=== PATIENT | female | born 1955 | race Caucasian/White ===

== ENCOUNTER → 2021-01-27 | Outpatient (CLI) | payer MEDICARE, OTHER ==
[~2021-01-27] MED LIST: ABILIFY 2 MG TAB2 MG PO; BUTALB-CAFF-AC1 EACH PO; CLONIDINE1 EACH TD; CYCLOBENZAPRINE10 MG PO; ELIQUIS 2.5 MG2.5 MG PO; ESCITALOPRAM OX20 MG PO; FLUZONE QU60 MCG/018 IM; HYDROCODON-ACE1 EAC2 PO; LEXAPRO20 MG PO; LISINOPRIL-HCT1 EAC2 PO; LORTAB 5-325 M1 EACH PO; NORCO 7.5-3251 EACH PO; NORVASC 5 MG TAB5 MG PO; NORVASC10 MG PO; PERCOCET 10-321 EACH PO; PRAVASTATIN SOD40 MG PO; PROTONIX40 MG PO; RESTORIL15 MG PO; ROPINIROLE HCL0.5 MG PO; ST. JOSEPH ASPI81 M1 PO; SYMBICORT 80-10.2 GM INH; SYNTHROID125 MCG PO; TIZANIDINE HCL4 MG PO; TOPROL XL50 MG PO; VENTOLIN HFA 66.7 GM INH; ZANAFLEX4 MG PO; ZOFRAN ODT 4 MG4 MG PO
[2021-01-27 13:14] LABS: HEMOGLOBIN 12.6 gm/dl (12.3-15.3); RED BLOOD COUNT 4.42 M/UL (4.00-5.10); WHITE BLOOD COUNT 7.8 K/UL (4.5-11.0)
[2021-01-27 13:33] LABS: BUN/CREATININE RATIO 15 (0-10)
== END ==
LOC: OPSV2 11:30
PROVIDERS: Anesthesiology
DX: Z01.818 Encounter for other preprocedural examination (principal); T82.598A Other mechanical complication of other cardiac and vascular devices and implants, initial encounter; I10 Essential (primary) hypertension; D64.9 Anemia, unspecified; Z20.822 Contact with and (suspected) exposure to COVID-19
CPT/HCPCS: 36415; 80048; 85025; 93005; U0003

== ENCOUNTER → 2021-01-30 | Day surgery (SDC) | payer MEDICARE, OTHER | END | disposition home or self-care (01) | LOC: OR 07:26 | DX: T82.514A Breakdown (mechanical) of infusion catheter, initial encounter (principal); J45.909 Unspecified asthma, uncomplicated; I10 Essential (primary) hypertension; F41.8 Other specified anxiety disorders; K21.9 Gastro-esophageal reflux disease without esophagitis; E78.5 Hyperlipidemia, unspecified; E03.9 Hypothyroidism, unspecified; G43.919 Migraine, unspecified, intractable, without status migrainosus; G25.81 Restless legs syndrome; Z88.5 Allergy status to narcotic agent; Z88.0 Allergy status to penicillin; Z79.82 Long term (current) use of aspirin; Z79.899 Other long term (current) drug therapy | CPT/HCPCS: 71045; 77001; C1769; C1788; J1642; J2001; J2704; J3010; J7030; J7040; J7120 ==

== ENCOUNTER → 2021-05-07 | Outpatient (CLI) | payer MEDICARE, OTHER ==
[~2021-05-07] MED LIST changes: +GABAPENTIN100 MG PO; +METHOCARBAMOL500 MG PO; +WELLBUTRIN SR150 MG PO
== END ==
LOC: MRI 13:31
DX: R55 Syncope and collapse (principal); G31.9 Degenerative disease of nervous system, unspecified
CPT/HCPCS: 70551

== ENCOUNTER → 2021-05-14 | Outpatient (CLI) | payer MEDICARE, OTHER | LOC: US 08:25 | DX: R74.8 Abnormal levels of other serum enzymes (principal) | CPT/HCPCS: 76705 ==

== ENCOUNTER → 2021-05-21 | Outpatient (CLI) | payer MEDICARE, OTHER | LOC: KOH-I 11:00 → EXRD 05-22 09:30 | DX: M80.08XA Age-related osteoporosis with current pathological fracture, vertebra(e), initial encounter for fracture (principal); M47.814 Spondylosis without myelopathy or radiculopathy, thoracic region; M85.88 Other specified disorders of bone density and structure, other site | CPT/HCPCS: 72146; 77080 ==

== ENCOUNTER → 2021-06-11 | Outpatient (CLI) | payer MEDICARE, OTHER ==
[2021-06-11 12:07] LABS: HEMOGLOBIN 13.3 gm/dl (12.3-15.3); RED BLOOD COUNT 4.68 M/UL (4.00-5.10); WHITE BLOOD COUNT 8.6 K/UL (4.5-11.0)
[2021-06-11 12:14] LABS: BUN/CREATININE RATIO 11 (0-10)
== END ==
LOC: OPSV2 10:59
PROVIDERS: Orthopaedic Surgery
DX: Z01.812 Encounter for preprocedural laboratory examination (principal); T84.84XA Pain due to internal orthopedic prosthetic devices, implants and grafts, initial encounter
CPT/HCPCS: 36415; 80048; 85025

== ENCOUNTER → 2021-06-12 | Day surgery (SDC) | payer MEDICARE, OTHER ==
[~2021-06-12] VITALS: Ht 162.6 cm; Wt 79.4 kg
== END | disposition home or self-care (01) ==
LOC: OR 06:19
DX: T84.84XA Pain due to internal orthopedic prosthetic devices, implants and grafts, initial encounter (principal); M17.12 Unilateral primary osteoarthritis, left knee; I10 Essential (primary) hypertension; E78.5 Hyperlipidemia, unspecified; J45.909 Unspecified asthma, uncomplicated; E03.9 Hypothyroidism, unspecified; M81.0 Age-related osteoporosis without current pathological fracture; K21.9 Gastro-esophageal reflux disease without esophagitis; G25.81 Restless legs syndrome; F32.9 Major depressive disorder, single episode, unspecified; Z96.651 Presence of right artificial knee joint; Z88.0 Allergy status to penicillin; Z88.6 Allergy status to analgesic agent; Z79.899 Other long term (current) drug therapy; Z20.822 Contact with and (suspected) exposure to COVID-19
CPT/HCPCS: 73560; 76000; 93005; J1100; J1642; J2001; J2250; J2405; J2704; J3010; J7120

== ENCOUNTER → 2021-06-20 | Outpatient (CLI) | payer MEDICARE, OTHER | LOC: RAD 13:13 | DX: R51.9 Headache, unspecified (principal); M47.812 Spondylosis without myelopathy or radiculopathy, cervical region | CPT/HCPCS: 72040 ==

== ENCOUNTER → 2021-12-06 | Outpatient (CLI) | payer MEDICARE, OTHER ==
[~2021-12-06] VITALS: Ht 162.6 cm; Wt 75.3 kg
== END ==
LOC: OPSV 14:07
DX: U07.1 COVID-19 (principal); Z23 Encounter for immunization; J45.909 Unspecified asthma, uncomplicated; I12.9 Hypertensive chronic kidney disease with stage 1 through stage 4 chronic kidney disease, or unspecified chronic kidney disease; N18.9 Chronic kidney disease, unspecified; Z85.79 Personal history of other malignant neoplasms of lymphoid, hematopoietic and related tissues
CPT/HCPCS: M0247; Q0247

== ENCOUNTER → 2022-06-02 | Outpatient (CLI) | payer MEDICARE, OTHER | LOC: EMI 11:15 | DX: R27.0 Ataxia, unspecified (principal); R29.2 Abnormal reflex; M48.02 Spinal stenosis, cervical region | CPT/HCPCS: 70551; 72141 ==

== ENCOUNTER → 2022-08-03 | Outpatient (CLI) | payer MEDICARE, OTHER | LOC: KOH-I 09:59 | DX: S92.352A Displaced fracture of fifth metatarsal bone, left foot, initial encounter for closed fracture (principal) | CPT/HCPCS: 73630 ==